=== PATIENT | female | born 1995 | race Caucasian/White ===

== ENCOUNTER 2016-11-15 09:19 | Emergency (ER) | payer MEDICAID ==
[2016-11-15 09:19] VITALS: BMI 18.2
[2016-11-15 09:42] VITALS: TEMP 97.5
[2016-11-15] MEDS ORDERED: Aluminum Hydroxide/Magnesium Hydroxide Susp (30 mL) PO STA (10:03)
--- NOTE | 2016-11-15 10:05 | C.PDOC ---
History Of Present Illness Patient is a 21 year old female who presents to the ER with a complaint of chest tightness, shortness of breath and nausea that began this morning. Patient states she had similar symptoms yesterday morning that resolved 1-2 hours after taking her gastritis medicine. Patient notes not taking any medicine today and states the pain has been decreasing on its own. Patient is currently not on any form of contraceptive. Patient reports having chronic diarrhea and denies fever, chills, vomiting, leg pain or swelling. Time Seen by Provider: 11/15/16 09:44 Chief Complaint (Nursing): Chest Pain History Per: Patient History/Exam Limitations: no limitations Onset/Duration Of Symptoms: Hrs Current Symptoms Are (Timing): Still Present Quality: Tightness (Chest) Associated Symptoms: Dyspnea Past Medical History Reviewed: Historical Data, Nursing Documentation, Vital Signs Vital Signs: Last Vital Signs Temp 97.5 F L 11/15/16 09:28 Pulse 65 11/15/16 09:28 Resp 20 11/15/16 09:28 BP 109/71 11/15/16 09:28 Pulse Ox 98 11/15/16 10:52 - Medical History PMH: Gastritis Family History: States: Unknown Family Hx - Social History Hx Alcohol Use: Yes Hx Substance Use: Yes - Immunization History Hx Tetanus Toxoid Vaccination: No Hx Influenza Vaccination: No Hx Pneumococcal Vaccination: No Review Of Systems Constitutional: Negative for: Fever, Chills Cardiovascular: Positive for: Chest Pain. Negative for: Palpitations Respiratory: Positive for: Shortness of Breath. Negative for: Cough Gastrointestinal: Positive for: Nausea, Diarrhea. Negative for: Vomiting Physical Exam - Physical Exam Appears: Well, Non-toxic Skin: Normal Color, Warm, Dry Head: Atraumatic, Normacephalic Oral Mucosa: Moist Chest: Symmetrical Cardiovascular: Rhythm Regular Respiratory: Normal Breath Sounds, No Rales, No Rhonchi, No Wheezing Gastrointestinal/Abdominal: Bowel Sounds (Normal), Soft, Tenderness (Epigastric) , No Distention, No Guarding, No Rebound Extremity: No Swelling (Legs) Neurological/Psych: Oriented x3, Normal Speech, Normal Cognition ED Course And Treatment - Laboratory Results Urine POC: Negative ECG: Interpreted By Me, Viewed By Me ECG Rhythm: Sinus Rhythm (77 bpm) Interpretation Of ECG: Normal sinus rhythm with sinus arrhythmia O2 Sat by Pulse Oximetry: 98 (Room air) Pulse Ox Interpretation: Normal Progress Note: Pepcid PO and Maalox PO administered. POC urine test ordered. 1051 pt feeling much better, pain resolved. still mildly nauseous, will order zofran. Medical Decision Making Medical Decision Making: pt feeling much better after maalox, pepcid and zofran. pain and nausea now resolved. pt advised to watch food intacke, not eat late at night, f/u pmd. Disposition Counseled Patient/Family Regarding: Diagnosis, Need For Followup - Disposition Referrals: Caitie Paris MD [Staff Provider] - Disposition: HOME/ ROUTINE Disposition Time: 11:45 Condition: IMPROVED Additional Instructions: DO not eat late at night close to bedtime Take your gastritis medicine daily for the next few days. Avoid alcohol, caffeine, cigarettes, spicy food, fried foods, acidic foods- tomato, citrus, peppermint and chocolate. Follow up with Dr Paris in a few days. Return to ER for any worsening symptoms. Instructions: Gastroesophageal Reflux Disease (ED) Forms: General Discharge Instructions, Work Excuse - Clinical Impression Clinical Impression: Gastroesophageal reflux disease - Scribe Statement The provider has reviewed the documentation as recorded by the Scribe Roger Velez All medical record entries made by the Scribe were at my direction and personally dictated by me. I have reviewed the chart and agree that the record accurately reflects my personal performance of the history, physical exam, medical decision making, and the department course for this patient. I have also personally directed, reviewed, and agree with the discharge instructions and disposition.
[2016-11-15] MEDS ORDERED: Aluminum Hydroxide/Magnesium Hydroxide Susp (30 mL) ONE (10:15)
[2016-11-15 12:12] VITALS: BP 100/67; PULSE 74; RESP 16; O2SAT 100
== END 2016-11-15 12:12 | disposition home or self-care (01) ==
LOC: C.ER 09:19
DX: K21.9 Gastro-esophageal reflux disease without esophagitis (principal)